=== PATIENT | female | born 1970 | race Caucasian/White ===

== ENCOUNTER 2018-07-28 08:17 | Emergency (ER) | payer OTHER ==
[2018-07-28 08:34] VITALS: BP 160/80
--- NOTE | 2018-07-28 08:42 | UC ---
UC General HPI - HPI Summary HPI Summary: Patient was going to the gym. Went into her garage without turning on light. Stepped down and laterally rolled her left ankle. Barely able to ambulate. Came over to urgent care for further evaluation. No history of broken bones or ankle injury in the past. Meds: Reviewed - History of Current Complaint Chief Complaint: UCLowerExtremity Stated Complaint: ANKLE/FOOT INJURY Time Seen by Provider: 07/28/18 08:33 Pain Intensity: 7 - Allergy/Home Medications Allergies/Adverse Reactions: Allergies Allergy/AdvReac Type Severity Reaction Status Date / Time ciprofloxacin [From Cipro] Allergy Hives Verified 07/28/18 08:28 erythromycin base Allergy Hives Verified 07/28/18 08:35 [From E-Mycin] Penicillins Allergy Hives Verified 07/28/18 08:28 Home Medications: Home Medications Multivitamin [Multiple Vitamins] 1 tab PO DAILY 07/28/18 [History Confirmed 08/03] PMH/Surg Hx/FS Hx/Imm Hx Previously Healthy: Yes - Surgical History Surgical History: Yes Surgery Procedure, Year, and Place: hysto, appy, csection, rt wrist sx - Social History Alcohol Use: Rare Substance Use Type: None Smoking Status (MU): Never Smoked Tobacco Review of Systems All Other Systems Reviewed And Are Negative: Yes Physical Exam Triage Information Reviewed: Yes Appearance: Well-Appearing Vital Signs: Initial Vital Signs Temp 97.6 F 07/28/18 08:29 Pulse 79 07/28/18 08:29 Resp 16 07/28/18 08:29 BP 160/80 07/28/18 08:29 Pulse Ox 98 07/28/18 08:29 Vital Signs Reviewed: Yes Musculoskeletal: Positive: Other: - left lateral ankle tenderness and minimal edema. Pain with flexion and extension. Diagnostics - Radiology Left ankle xray Radiology Interpretation Completed By: Radiologist Summary of Radiographic Findings: Displaced fracture of navicular bone Course/Dx - Course Course Of Treatment: This is a 48 year old with a left ankle sprain. Assessment. Xray: Displace fracture of navicular bone. CAM boot given. Plan. Blood pressure - elevated secondary to pain, recheck blood pressure, if remains high, follow up with PCP. Continue to wear CAM boot until seen by Orthopedics for further evaluation. Follow up with Orthopedics - [address] [place] [address] [phone]. Ibuprofen, rest, elevate and ice area as needed - Diagnoses Provider Diagnosis: Navicular fracture of ankle Discharge - Sign-Out/Discharge Documenting (check all that apply): Patient Departure All imaging exams completed and their final reports reviewed: Yes - Discharge Plan Condition: Good Disposition: HOME Patient Education Materials: Foot Fracture in Adults (ED) Referrals: Iggy Garza MD [Primary Care Provider] - Additional Instructions: Blood pressure - elevated secondary to pain, recheck blood pressure, if remains high, follow up with PCP Continue to wear CAM boot until seen by Orthopedics for further evaluation Follow up with Orthopedics - [address] [place] [address] [phone] Ibuprofen, rest, elevate and ice area as needed - Billing Disposition and Condition Condition: GOOD Disposition: Home
== END 2018-07-28 09:40 | disposition home or self-care (01) ==
LOC: UCEAST 08:17
DX: S92.252A Displaced fracture of navicular [scaphoid] of left foot, initial encounter for closed fracture (principal); X50.0XXA Overexertion from strenuous movement or load, initial encounter; Y93.01 Activity, walking, marching and hiking; Y92.007 Garden or yard of unspecified non-institutional (private) residence as the place of occurrence of the external cause; Z88.0 Allergy status to penicillin; Z88.1 Allergy status to other antibiotic agents
CPT/HCPCS: 99202; G0463